=== PATIENT | male | born 1950 | race Caucasian/White ===

== ENCOUNTER 2016-04-18 16:44 | Emergency (ER) | payer OTHER ==
--- NOTE | 2016-04-18 16:50 | UCPHY ---
H & P Patient Type: New HPI/ROS: HPI CHIEF COMPLAINT: Right middle finger swelling and pain HISTORY OF PRESENT ILLNESS: this patient very pleasant 66-year-old male, no significant medical history, presents to the emergency room after he developed 24 hours of right middle finger swelling and pain. He tells me approximately 3 weeks ago he was bit by his dog had a puncture wound to that finger on the dorsal aspect and some swelling this healed on its own he was never seen for medical attention. Presents to the urgent care today with swelling and pain and warmth to that finger. He thinks it may have been fractured. he is unsure exactly why it is now swollen 3 weeks later and it was not swollen time of the injury. He denies new recent injury. patient is right-hand dominant Past Medical History: BPH Past Surgical History: laminectomy Social History: denies use drugs alcohol tobacco products Family History: noncontributory ROS REVIEW OF SYSTEMS: A comprehensive 10 point review of systems is otherwise negative aside from elements mentioned in the history of present illness. Exam Constitutional triage nursing summary reviewed, vital signs reviewed, awake/ alert. Eyes normal conjunctivae and sclera, EOMI, PERRLA. HENT normal inspection, atraumatic, moist mucus membranes, no epistaxis, neck supple/ no meningismus, no raccoon eyes. Respiratory clear to auscultation bilaterally, normal breath sounds, no respiratory distress, no wheezing. Cardiovascular rate normal, regular rhythm, no murmur, no edema, distal pulses normal. Gastrointestinal soft, non-tender, no rebound, no guarding, normal bowel sounds, no distension, no pulsatile mass. Genitourinary no CVA tenderness. 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 He does have pain with passive flexion. There is some concern for flexor tenosynovitis, no midline vertebral tenderness, full range of motion, no calf swelling, no tenderness of extremities, no meningismus, good pulses, neurovascularly intact. Skin pink, warm, & dry, no rash, skin atraumatic. Neurologic awake, alert and oriented x 3, AAOx3, moves all 4 extremities equally, motor intact, sensory intact, CN II-XII intact, normal cerebellar, normal vision, normal speech. Psychiatric normal mood/affect. Heme/Lymph/Immune no lymphadenopathy. Differential Diagnosis: includes but is not limited to in a particular order, bony fracture, soft tissue injury, retained foreign body, flexor tenosynovitis Medical Decision Making: this patient had a hand x-ray or specifically x-ray of the middle digit to rule out foreign body or bony abnormality. I will place him on Augmentin. He will need close 24 hour follow-up with Hand surgery. Re-evaluation: ED x-ray: right middle finger; No visible fracture seen, no foreign body seen. Will refer to Hand surgery. Placed on Augmentin. Understands return emergency room if there is any worsening symptoms questions concerns including worsening warmth, redness, drainage, swelling, pain, fever. Source: Patient - Personal History Tetanus Vaccine Date: < 10 years - Medical/Surgical History Hx Asthma: No Hx Chronic Respiratory Disease: No Hx Diabetes: No Hx Cardiac Disease: No Hx Renal Disease: No Hx Cirrhosis: No Hx Alcoholism: No Hx HIV/AIDS: No Hx Splenectomy or Spleen Trauma: No Other PMH: ortho sx, BPH, left hip resurfacing, right shoulder surgery, hernia surg, - Family History Significant Family History: No pertinent family hx - Social History Smoking Status: Never smoked Constitutional: Initial Vital Signs Heart Rate 75 04/18/16 16:55 Respiratory Rate 18 04/18/16 16:55 Blood Pressure 150/93 H 04/18/16 16:55 O2 Sat (%) 97 04/18/16 16:55 O2 Delivery Mode Room Air Allergies/Adverse Reactions: No Known Allergies Allergy (Verified 08/31/15 07:21) Home Medications: Medication Instructions Recorded NEXIUM 12/04/12 Wellbutrin 12/04/12 Fenofibrate 08/31/15 GABAPENTIN 08/31/15 Amoxicillin/Clavulanate Pot 875 mg PO BID #14 tab 04/18/16 [Augmentin 875 MG TAB (*)] Departure - Departure Disposition: Home, Routine, Self-Care Clinical Impression: Hand injury Qualifiers: Encounter type: initial encounter Laterality: right Qualified Code(s): S69.91XA - Unspecified injury of right wrist, hand and finger(s), initial encounter Condition: Good Instructions: Cellulitis (ED) Additional Instructions: 1. please ice your hand. 2. Take antibiotic as prescribed. 3. You need close orthopedic follow-up, Specifically she follow up with hand surgeon next 24-48 hours 4. return to the urgent care or emergency room if you have worsening swelling, pain, fever, drainage questions or concerns. Referrals: Nick Preston MD [Medical Doctor] - As per Instructions Prescriptions: Amoxicillin/Clavulanate Pot [Augmentin 875 MG TAB (*)] 875 mg PO BID #14 tab - PQRS PQRS Measurement: n/a
[2016-04-18 16:59] VITALS: BP 150/93; PULSE 75; RESP 18; O2SAT 97
== END 2016-04-18 17:37 | disposition home or self-care (01) ==
LOC: CED 16:44
DX: S61.232A Puncture wound without foreign body of right middle finger without damage to nail, initial encounter (principal); W54.0XXA Bitten by dog, initial encounter
CPT/HCPCS: 73140-PO; 99204-PO; G0463-PO

== ENCOUNTER → 2016-09-15 | Outpatient (CLI) | payer OTHER | LOC: CIMAGING 09:11 | PROVIDERS: ATTEND Physician Assistant | DX: K76.0 Fatty (change of) liver, not elsewhere classified (principal); R16.0 Hepatomegaly, not elsewhere classified; K83.9 Disease of biliary tract, unspecified; N20.0 Calculus of kidney; R16.1 Splenomegaly, not elsewhere classified | CPT/HCPCS: 76700-PO ==

== ENCOUNTER 2017-01-17 11:30 | Emergency (ER) | payer OTHER ==
[2017-01-17 11:45] VITALS: RESP 16; TEMP 98.6; O2SAT 91
--- NOTE | 2017-01-17 11:51 | CPEKG ---
Heart Rate: 82 RR Interval: 732 P-R Interval: 136 QRSD Interval: 96 QT Interval: 404 QTC Interval: 472 P Ballard: 66 QRS Ballard: 71 T Wave Ballard: 72 EKG Severity - NORMAL ECG - EKG Impression: SINUS RHYTHM Electronically Signed By: Nolan Fink 17-Jan-2017 14:16:22
[2017-01-17 12:06] LABS: % IMMATURE GRANULYOCYTES 0.3 % (0.0-1.1); ABSOLUTE IMMATURE GRANULOCYTES 0.02 10^3/uL (0.00-0.10); ADD DIFF? NO; ADD MORPH? NO; ADD SCAN? NO; ATYPICAL LYMPHOCYTE FLAG 0 (0-99); FRAGMENT RBC FLAG 0 (0-99); HEMATOCRIT 43.5 % (40.0-51.0); HEMOGLOBIN 15.2 g/dL (13.7-17.5); LEFT SHIFT FLG 0 (0-99); LIPEMIA HEMOLYSIS FLAG 90 (0-99); MEAN CELL HEMOGLOBIN 31.4 pg (27.9-34.1); MEAN CELL HEMOGLOBIN CONCENTR. 34.9 g/dL (32.4-36.7); MEAN CELL VOLUME 89.9 fL (81.5-99.8); MEAN PLATELET VOLUME 8.9 fL (8.7-11.7); PLATELET CLUMPS FLAG 0 (0-99); PLATELET COUNT 247 10^3/uL (150-400); RED BLOOD CELL COUNT 4.84 10^6/uL (4.40-6.38); RED CELL DISTRIBUTION WIDTH 11.9 % (11.5-15.2)
[2017-01-17 12:17] LABS: INR 0.99 (0.83-1.16)
[2017-01-17 12:18] LABS: APTT 23.9 SEC (23.0-38.0)
[2017-01-17 12:19] LABS: ALANINE AMINOTRANSFERASE 45 IU/L (21-72); ALBUMIN 4.3 g/dL (3.5-5.0); ALKALINE PHOSPHATASE 82 IU/L (38-126); ANION GAP 17 mEq/L (8-16); ASPARTATE AMINOTRANSFERASE 30 IU/L (17-59); BILIRUBIN,TOTAL 0.4 mg/dL (0.1-1.4); CALCIUM 9.8 mg/dL (8.5-10.4); CARBON DIOXIDE 25 mEq/l (22-31); CHLORIDE 101 mEq/L (97-110); GLOMERULAR FILTRATION RATE > 60; GLUCOSE 106 mg/dL (70-100); POTASSIUM 3.9 mEq/L (3.5-5.2); SODIUM 143 mEq/L (134-144); TOTAL PROTEIN 7.5 g/dL (6.3-8.2)
[2017-01-17 12:22] VITALS: PULSE 75
[2017-01-17] MEDS ORDERED: IOPAMIDOL (ISOVUE 370) 100 ML BTL IV ONE (12:36)
[2017-01-17] MEDS ORDERED: CARBAMIDE PEROXIDE 15 ML OTIC.BTL LEFTEAR ONE (13:58)
--- NOTE | 2017-01-17 14:00 | EDPHY ---
H & P Stated Complaint: SINCE 430 AM DIZZY. Time Seen by Provider: 01/17/17 11:42 HPI/ROS: This patient was brought over from [facility] here at [facility] for further evaluation of his dizziness. He awakened this morning at 4:30 a.m. to go the bathroom and noticed some dizziness described as lightheaded in nature on the way to the bathroom. Went back to sleep and at 6:30 a.m. when he arose again he felt ongoing "wobbly walking ". He also noted some difficulty concentrating at work and he felt that there is some subtle difficulty focusing his vision which is unusual for him. He took his blood pressure at home this morning it was 170/68 or is on medications usually normotensive. He does report increased work stress recently. ROS: No fevers or chills. He does complain of fatigue since yesterday. No other constitutional symptoms HEENT: He had URI last week consisting of nasal congestion and a left earache. He has been taking guaifenesin for this with improvement. He no longer has earache. He does have chronic tinnitus in the left ear which is unchanged. Neuro: No headache. He denies any specifically vertiginous symptoms with head movement and states again that it is more lightheaded sense of dizziness. No focal numbness tingling or weakness. No marlena memory difficulties. Pulmonary: Minimal cough that he attributes to postnasal drip that is improving since last week and nearly resolved. No shortness of breath or pleuritic pain. Cardiovascular: No chest pain or heart palpitations. No lower extremity swelling or calf pain. GI: No nausea vomiting or diarrhea. No abdominal pain. : No symptoms Integumentary: No skin rash Psychiatric: He reports some difficulty sleeping but is still sleeping 6 hr a night or more. Reports increased work stress. No other psychiatric complaints Complete review of symptoms is otherwise negative. Source: Patient Exam Limitations: No limitations - Personal History Current Tetanus Diphtheria and Acellular Pertussis (TDAP): Yes Tetanus Vaccine Date: < 10 years - Medical/Surgical History PMH: Dyslipidemia Hypertension GERD Degenerative disc disease in his cervical spine Hx Asthma: No Hx Chronic Respiratory Disease: No Hx Diabetes: No Hx Cardiac Disease: No Hx Renal Disease: No Hx Cirrhosis: No Hx Alcoholism: No Hx HIV/AIDS: No Hx Splenectomy or Spleen Trauma: No Other PMH: ortho sx, BPH, left hip resurfacing, right shoulder surgery, hernia surg,. 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 HEENT: Is no external evidence of trauma on exam. Nose atraumatic. Ears: Right external canal-partial cerumen but TM still visible left external canal- cerumen impaction. Oropharynx: No dental trauma or malocclusion. No intraoral lacerations. Eyes: Pupils are equal and reactive to light. Extraocular motions are intact. Optic fundi: Clear with no papilledema or hemorrhage. Visual acuity is 20 20 right eye, OS and both eyes Neck: Trachea is midline with no stridor. The patient has no midline neck tenderness and retains a full range of motion without increase in pain. Lungs: Clear to auscultation bilaterally Cardiac: Regular rate and rhythm no murmur gallop or rub. Chest: Nontender. Abdomen: Soft nontender no organomegaly Back: Nontender Neuro: GCS of 15. Cranial nerves II through XII intact. No pronator drift. Cerebellar exam is normal as judged by symmetric rapid hand movements bilaterally. No pronator drift. No sensory or motor deficits are appreciated. NIH score of 0. No nystagmus is appreciated. No worsening of dizzy feeling with head movement. Initial differential diagnosis: Stroke, TIA, Wernicke's encephalopathy, stress response with somatic symptoms, atypical migraine, metabolic disorder, subtle peripheral vertigo Constitutional: Initial Vital Signs Temperature (C) 37 C 01/17/17 11:38 Heart Rate 80 01/17/17 11:38 Respiratory Rate 16 01/17/17 11:38 O2 Sat (%) 91 L 01/17/17 11:38 O2 Delivery Mode Room Air Allergies/Adverse Reactions: No Known Allergies Allergy (Verified 08/31/15 07:21) Home Medications: Medication Instructions Recorded NEXIUM 12/04/12 Wellbutrin 12/04/12 Fenofibrate 08/31/15 Aspirin 81mg (*) 01/17/17 Losartan-Hctz 100-25 mg Tab 01/17/17 Nitroglycerin PRN 01/17/17 Medical Decision Making - Diagnostics EKG Interpretation: 12 lead EKG performed shortly after arrival at 11:49 a.m. indication dizziness rule out dysrhythmia, VA or other Sinus rhythm at 82 Intervals: Normal throughout [place]: Normal throughout ST segments: Normal throughout Overall assessment normal EKG Imaging Results: Imaging Impressions Head CT 01/17/17 12:00 Impression: 1. Normal brain. No intracranial hemorrhage or evidence of acute ischemia. 2. Chronic mild right maxillary sinus disease. Findings discussed with Emergency Department physician, Dr. Nolan Jon on January 17, 2017 at 1221 hours. Head CTA 01/17/17 12:30 Impression: 1, Negative CT angiogram of the brain. 2. Chronic right maxillary sinus mucosal changes. 2. CT Angiography of the Neck (With Contrast) Clinical Indications: Dizziness, subtle vision changes, difficulty concentrating Technique: During IV administration of 85 mL of Isovue-370 intravenously, helical multidetector data acquisition was obtained from the upper thorax cephalad through the skull base. The thinly collimated data were manipulated in multiple projections on the 3D computer workstation by the radiologist. Dose reduction techniques were utilized. Findings: Carotid bifurcations are widely patent. There is mild nonflow limiting by NASCET criteria predominantly calcified bilateral carotid bifurcation plaque. Both vertebral arteries are widely patent to the basilar artery. There is a 50% nonflow limiting stenosis at the origin of the right vertebral artery. The origin of the left vertebral artery is normal.. No evidence of occlusion, dissection, hemodynamically significant stenosis, or ulceration. Incidentally noted is a calcified granuloma associated with the upper right major fissure.There is multilevel degenerative disk disease in the cervical spine with reverse curvature at C5-C6 where the spinous processes are widened. Impression: 1. 50% origin stenosis right vertebral artery, with a widely patent , unremarkable left vertebral artery.. 2. Nonflow limiting plaque both carotid bifurcations. 3. Cervical spondylosis with findings suggesting muscle spasm. Note: All stenoses are calculated using NASCET Criteria. Results called and discussed with NOLAN JON, at 01/17/2017 13:42 General information for patients regarding this examination can be found at [email or web address]. If you have questions or comments about this report, please contact me at [phone] (hospital) or [phone] (cell). Neck CTA 01/17/17 12:30 Impression: 1, Negative CT angiogram of the brain. 2. Chronic right maxillary sinus mucosal changes. 2. CT Angiography of the Neck (With Contrast) Clinical Indications: Dizziness, subtle vision changes, difficulty concentrating Technique: During IV administration of 85 mL of Isovue-370 intravenously, helical multidetector data acquisition was obtained from the upper thorax cephalad through the skull base. The thinly collimated data were manipulated in multiple projections on the 3D computer workstation by the radiologist. Dose reduction techniques were utilized. Findings: Carotid bifurcations are widely patent. There is mild nonflow limiting by NASCET criteria predominantly calcified bilateral carotid bifurcation plaque. Both vertebral arteries are widely patent to the basilar artery. There is a 50% nonflow limiting stenosis at the origin of the right vertebral artery. The origin of the left vertebral artery is normal.. No evidence of occlusion, dissection, hemodynamically significant stenosis, or ulceration. Incidentally noted is a calcified granuloma associated with the upper right major fissure.There is multilevel degenerative disk disease in the cervical spine with reverse curvature at C5-C6 where the spinous processes are widened. Impression: 1. 50% origin stenosis right vertebral artery, with a widely patent , unremarkable left vertebral artery.. 2. Nonflow limiting plaque both carotid bifurcations. 3. Cervical spondylosis with findings suggesting muscle spasm. Note: All stenoses are calculated using NASCET Criteria. Results called and discussed with NOLAN JON, at 01/17/2017 13:42 General information for patients regarding this examination can be found at [email or web address]. If you have questions or comments about this report, please contact me at [phone] ([facility]) or [phone] ([facility]). Imaging: Discussed imaging studies w/ will call clerk Radiologist ED Course/Re-evaluation: Orthostatic vital signs are negative for significant change. Patient is placed on a monitor remained stable. Without intervention his sense of dizziness gradually improved. Cerumen next left ear with irrigation and removal of cerumen impaction. He review of labs reveals normal CBC, metabolic panel and coags. Also, CT imaging of brain and CT angio head and neck are normal. I spoke with Dr. alexander Shen-on-call neurologist regarding this patient and given lack of any focal findings - more but global subtle encephalopathic presentation he does not feel that MRI is warranted at this time or further workup. I counseled patient regarding his normal studies today. I also spoke with Dr. Shannon Ernandez, his primary care physician regarding the outcome of his studies Discussion: Patient here with dizziness of unclear etiology. After workup showing no evidence of acute stroke, bleed, tumor or other significant intracranial pathology, I think the patient may have a subtle peripheral vertigo. I also do not find evidence of cardiac dysrhythmia or ischemia contributing to his symptoms. Also, he is not orthostatic. Wernicke's encephalopathy is considered but seems unlikely in this patient with a normal diet and multivitamins daily. He does report daily alcohol but it sounds like a small amount. Dr. Ernandez will follow up with further workup with plan to send him to Neurology for further evaluation as an outpatient for any ongoing symptoms. Patient understands the need to return for any significant worsening despite treatment plan. - Data Points Laboratory Results: Laboratory Results 01/17/17 11:55 01/17/17 11:55 01/17/17 01/17/17 01/17/17 11:55 11:55 11:55 WBC 6.82 10^3/uL 10^3/uL (3.80-9.50) RBC 4.84 10^6/uL 10^6/uL (4.40-6.38) Hgb 15.2 g/dL g/dL (13.7-17.5) Hct 43.5 % % (40.0-51.0) MCV 89.9 fL fL (81.5-99.8) MCH 31.4 pg pg (27.9-34.1) MCHC 34.9 g/dL g/dL (32.4-36.7) RDW 11.9 % % (11.5-15.2) Plt Count 247 10^3/uL 10^3/uL (150-400) MPV 8.9 fL fL (8.7-11.7) Neut % (Auto) 67.9 % % (39.3-74.2) Lymph % (Auto) 24.6 % % (15.0-45.0) Noble % (Auto) 5.6 % % (4.5-13.0) Eos % (Auto) 1.2 % % (0.6-7.6) Baso % (Auto) 0.4 % % (0.3-1.7) Nucleat RBC Rel Count 0.0 % % (0.0-0.2) Absolute Neuts (auto) 4.63 10^3/uL 10^3/uL (1.70-6.50) Absolute Lymphs (auto) 1.68 10^3/uL 10^3/uL (1.00-3.00) Absolute Monos (auto) 0.38 10^3/uL 10^3/uL (0.30-0.80) Absolute Eos (auto) 0.08 10^3/uL 10^3/uL (0.03-0.40) Absolute Basos (auto) 0.03 10^3/uL 10^3/uL (0.02-0.10) Absolute Nucleated RBC 0.00 10^3/uL 10^3/uL (0-0.01) Immature Gran % 0.3 % % (0.0-1.1) Immature Gran # 0.02 10^3/uL 10^3/uL (0.00-0.10) PT 13.0 SEC SEC (12.0-15.0) INR 0.99 (0.83-1.16) APTT 23.9 SEC SEC (23.0-38.0) Sodium 143 mEq/L mEq/L (134-144) Potassium 3.9 mEq/L mEq/L (3.5-5.2) Chloride 101 mEq/L mEq/L (97-110) Carbon Dioxide 25 mEq/l mEq/l (22-31) Anion Gap 17 mEq/L H mEq/L (8-16) BUN 17 mg/dL mg/dL (7-23) Creatinine 1.0 mg/dL mg/dL (0.7-1.3) Estimated GFR > 60 Glucose 106 mg/dL H mg/dL (70-100) Calcium 9.8 mg/dL mg/dL (8.5-10.4) Total Bilirubin 0.4 mg/dL mg/dL (0.1-1.4) AST 30 IU/L IU/L (17-59) ALT 45 IU/L IU/L (21-72) Alkaline Phosphatase 82 IU/L IU/L (38-126) Total Protein 7.5 g/dL g/dL (6.3-8.2) Albumin 4.3 g/dL g/dL (3.5-5.0) Departure - Departure Disposition: Home, Routine, Self-Care Clinical Impression: Dizziness Condition: Good Instructions: Dizziness (ED) Additional Instructions: Diagnosis: Dizziness Your EKG, labs, and CT imaging look normal today. The cause read dizziness is not clear at this time. Plan: Drink plenty fluids Continue with good diet. Continue your multi vitamins Call neurology to arrange a follow-up appointment for further evaluation of any ongoing symptoms. Also, follow up with Dr. Ernandez Return for any significant worsening of your symptoms. Referrals: Shannon Ernandez MD [Primary Care Provider] - As per Instructions Jose Juan Castaneda DO [Doctor of Osteopathy] - As per Instructions
[2017-01-17 15:34] VITALS: BP 154/82
== END 2017-01-17 15:10 | disposition home or self-care (01) ==
LOC: CED 11:30
DX: R42 Dizziness and giddiness (principal); I10 Essential (primary) hypertension; Z79.82 Long term (current) use of aspirin
CPT/HCPCS: 70450-PO; 70496-PO; 70498-PO; 80053-PO; 85025-PO; 85610-PO; 85730-PO; Q9967

== ENCOUNTER → 2017-11-09 | Outpatient (CLI) | payer OTHER | LOC: CIMAGING 18:20 | PROVIDERS: ATTEND Family Medicine | DX: R07.89 Other chest pain (principal) | CPT/HCPCS: 71100-PO ==